=== PATIENT | male | born 1935 | race Caucasian/White ===

== ENCOUNTER 2016-12-19 11:23 | Emergency (ER) | payer MEDICARE, OTHER ==
[~2016-12-19] VITALS: Ht 172.7 cm; Wt 95.3 kg
[2016-12-19] MEDS ORDERED: ROSU20TA PO (11:50)
[2016-12-19] MEDS ORDERED: CITA40TA22 PO (11:50)
[2016-12-19] MEDS ORDERED: METO25TA6 PO (11:50)
[2016-12-19] MEDS ORDERED: L THYROXINE PO (11:50)
[2016-12-19] MEDS ORDERED: TAMS-3 PO (11:51)
[2016-12-19] MEDS ORDERED: CYCLOBENZAPRINE HCL 10 MG TABLET PO ONE (12:30)
[2016-12-19] MEDS ORDERED: HYDROCODONE/APAP 5-325MG TABLET PO ONE (12:30)
--- NOTE | 2016-12-19 13:54 | NUR ---
Patient is eating food tray with good appetite, still for disposition, decreased pains expressed
--- NOTE | 2016-12-19 14:57 | NUR ---
Patient discharged to home in stable conditon. Written and verbal after care instructions given to patient and spouse. Patient and spouse verbalized understanding of instructions. Copies of the x-ray results given to patient per request.
--- NOTE | 2016-12-19 14:58 | NUR ---
Patient left with his own walker and spouse.
== END 2016-12-19 15:02 | disposition home or self-care (01) ==
LOC: ER 11:23
DX: S20.219A Contusion of unspecified front wall of thorax, initial encounter (principal); M54.5 Low back pain; Z88.0 Allergy status to penicillin; I10 Essential (primary) hypertension; E03.9 Hypothyroidism, unspecified; E78.5 Hyperlipidemia, unspecified; W10.9XXA Fall (on) (from) unspecified stairs and steps, initial encounter; Y93.89 Activity, other specified; Y92.9 Unspecified place or not applicable; Y99.9 Unspecified external cause status
CPT/HCPCS: 71101; 72110; 99284; A4663

== ENCOUNTER 2023-11-09 13:19 | Inpatient (IN) | payer BC, MEDICARE, OTHER ==
[~2023-11-09] VITALS: Ht 172.7 cm; Wt 78.0 kg
[~2023-11-09 13:19] MED LIST: CITA40TA22 PO; L THYROXINE PO; METO25TA6 PO; ROSU20TA2 PO; TAMS-3 PO
[2023-11-09 14:34] LABS: *BILIRUBIN,URIN 3+ (NEGATIVE); *BLOOD, URINE 3+ (NEGATIVE); *CLARITY,URINE TURBID (CLEAR); *COLOR,URINE RED (YELLOW); *KETONES,URINE 2+ (NEGATIVE); *PROTEIN,URINE 3+ (NEGATIVE); LEUKOCYTE ESTERASE ,URINE 3+ (NEGATIVE); NITRITE, URINE POSITIVE (NEGATIVE); PH,URINE >=9.0 (5.0-8.0); UGLUCOSE TRACE (NEGATIVE)
[2023-11-09 14:43] LABS: BASOPHILS % (AUTO) 0.3 % (0.0-2.0); EOSINOPHILS # (AUTO) 0.2 K/uL (0.0-0.7); EOSINOPHILS % (AUTO) 1.8 % (0.0-7.0); HEMATOCRIT 38.4 % (36.7-47.1); LYMPHOCYTES # (AUTO) 1.3 K/uL (0.8-4.8); LYMPHOCYTES % (AUTO) 10.5 % (20.5-51.5); MEAN CORPUSCULAR HEMOGLOBIN 30.9 uug (23.8-33.4); MEAN CORPUSCULAR HGB CONC 34 g/dL (32.5-36.3); MEAN CORPUSCULAR VOLUME 91.3 fL (73.0-96.2); MONOCYTES # (AUTO) 0.8 K/uL (0.1-1.30); MONOCYTES % (AUTO) 6.3 % (0.0-11.0); NEUTROPHILS # (AUTO) 10.1 K/uL (1.8-8.9); NEUTROPHILS % (AUTO) 81.1 % (38.5-71.5); PLATELET COUNT (AUTO) 281 K/uL (152-348); RED BLOOD CELL COUNT(AUTO) 4.21 MIL/uL (4.06-5.63); RED CELL DISTRIBUTION WIDTH 14.9 % (12.1-16.2); WHITE BLOOD COUNT (AUTO) 12.5 K/uL (3.6-10.2)
[2023-11-09 14:44] LABS: DIFFERENTIAL COMMENT 1
[2023-11-09 14:53] LABS: CALCIUM 9.3 mg/dL (8.5-10.1); CARBON DIOXIDE 33 mmol/L (21-32); CHLORIDE 101 mmol/L (98-107); CREATININE 1.9 mg/dL (0.6-1.3); GLUCOSE 103 mg/dL (74-106); POTASSIUM 3.7 mmol/L (3.5-5.1); SODIUM SERUM 140 mmol/L (136-145); UREA NITROGEN, BLOOD 34 mg/dL (7-18)
[2023-11-09] MEDS ORDERED: BUPR-96 PO (14:56)
[2023-11-09] MEDS ORDERED: LEVO150T8 PO (14:56)
[2023-11-09] MEDS ORDERED: VITAMIN D3 PO (14:56)
[2023-11-09] MEDS ORDERED: FINA5TAB11 PO (14:56)
[2023-11-09] MEDS ORDERED: APIX5TAB PO (14:56)
[2023-11-09] MEDS ORDERED: VIT1TABL46 PO (14:56)
[2023-11-09] MEDS ORDERED: ASCO500C18 PO (14:56)
[2023-11-09] MEDS ORDERED: CRANBERRY PO (14:56)
[2023-11-09] MEDS ORDERED: HYDR-4209 PO (14:56)
[2023-11-09] MEDS ORDERED: POLY17PO4 PO (14:56)
[2023-11-09] MEDS ORDERED: GABA-532 PO (14:56)
[2023-11-09] MEDS ORDERED: ACET-2605 PO (14:56)
[2023-11-09] MEDS ORDERED: SENN8.6T19 PO (14:56)
[2023-11-09 15:05] LABS: ALANINE AMINOTRANSFERASE 29 U/L (16-63); ALKALINE PHOSPHATASE 81 U/L (50-136); ASPARTATE AMINOTRANSFERASE 14 U/L (15-37); BILIRUBIN,DIRECT 0.1 mg/dL (0.0-0.2); BILIRUBIN,TOTAL 0.5 mg/dL (0.2-1.0); NT-PRO BNP 289 pg/mL (0-125); TOTAL PROTEIN, SERUM 6.8 g/dL (6.4-8.2)
[2023-11-09 15:11] LABS: RBC,URINE TNTC /HPF (0-3)
[2023-11-09 15:12] LABS: BACTERIA,URINE MANY /HPF (NONE SEEN)
[2023-11-09 15:13] LABS: SQUAMOUS EPITHELIAL CELL,UR FEW /HPF (NONE SEEN); WBC,URINE 50-80 /HPF (0-3)
[2023-11-09] MEDS ORDERED: levoFLOXacin 500 MG/D5W 100 ML ONE (17:20)
[2023-11-09] MEDS: levoFLOXacin 500 MG/D5W 100ML PIGGYBACK IV ONE (17:25)
[2023-11-09] MEDS: IV NORMAL SALINE 1000 ML BAG IV ONE (18:01)
[2023-11-09] MEDS ORDERED: MIRALAX 17 GM POWD.PACK PO PRN (19:00)
[2023-11-09] MEDS ORDERED: HYDROCODONE/APAP 5-325MG TABLET PO PRN (19:00)
[2023-11-09] MEDS ORDERED: ONDANSETRON 4 MG/2 ML VIAL IV PRN (19:15)
[2023-11-09] MEDS ORDERED: ACETAMINOPHEN 325 MG TABLET PO PRN (19:15)
[2023-11-09 20:36] VITALS: BP 99/62; TEMP 97.6; O2SAT 98
[2023-11-09 20:40] VITALS: O2SAT 97
[2023-11-09] MEDS ORDERED: MEROPENEM 500MG/NS 50ML PB ***ER PYXIS ONLY IV ONE (20:56)
[2023-11-09] MEDS ORDERED: Medication Not On Formulary EA (Rosuvastatin Calcium (Crestor) 20 MG) PO SCH (21:00)
[2023-11-09] MEDS: TAMSULOSIN HCL 0.4 MG CAP.SR.24H PO SCH (21:14)
[2023-11-09] MEDS: ATORVASTATIN 40 MG TABLET PO SCH (21:15)
[2023-11-09] MEDS: MEROPENEM 500 MG in IV NORMAL SALINE 50 ML IV ONE (21:42)
[2023-11-09] MEDS ORDERED: MEROPENEM 500 MG in IV NORMAL SALINE 50 ML IV SCH (22:00)
[2023-11-09] MEDS ORDERED: IV 0.9% SODIUM CHLORID+ 20 KCL 1,000 ML ONE (22:01)
[2023-11-09] MEDS: POTASSIUM CHLORIDE 20 MEQ in IV NS 1000 ML 1,000 ML IV PRN (23:11)
[2023-11-10] VITALS (8 sets, daily range): BP systolic 89–122; BP diastolic 52–62; TEMP 96.6–98.4; O2SAT 95–99
[2023-11-10] MEDS ORDERED: BUPR150T5 PO (05:30)
[2023-11-10] MEDS: PANTOPRAZOLE SODIUM 40 MG TABLET.DR PO SCH (06:23)
[2023-11-10] MEDS: LEVOTHYROXINE SODIUM 150 MCG TABLET PO SCH (06:24)
[2023-11-10 06:59] LABS: BASOPHILS % (AUTO) 0.4 % (0.0-2.0); EOSINOPHILS # (AUTO) 0.4 K/uL (0.0-0.7); EOSINOPHILS % (AUTO) 3.5 % (0.0-7.0); HEMATOCRIT 33.6 % (36.7-47.1); HEMOGLOBIN 11.6 g/dL (12.5-16.3); LYMPHOCYTES # (AUTO) 1.6 K/uL (0.8-4.8); LYMPHOCYTES % (AUTO) 15.7 % (20.5-51.5); MEAN CORPUSCULAR HEMOGLOBIN 31.4 uug (23.8-33.4); MEAN CORPUSCULAR HGB CONC 35 g/dL (32.5-36.3); MEAN CORPUSCULAR VOLUME 90.6 fL (73.0-96.2); MONOCYTES # (AUTO) 0.9 K/uL (0.1-1.30); MONOCYTES % (AUTO) 8.5 % (0.0-11.0); NEUTROPHILS # (AUTO) 7.6 K/uL (1.8-8.9); NEUTROPHILS % (AUTO) 71.9 % (38.5-71.5); PLATELET COUNT (AUTO) 261 K/uL (152-348); RED BLOOD CELL COUNT(AUTO) 3.71 MIL/uL (4.06-5.63); RED CELL DISTRIBUTION WIDTH 14.5 % (12.1-16.2); WHITE BLOOD COUNT (AUTO) 10.5 K/uL (3.6-10.2)
[2023-11-10 07:13] LABS: IRON, SERUM 32 ug/dL (50-175)
[2023-11-10 07:24] LABS: ALANINE AMINOTRANSFERASE 20 U/L (16-63); ALBUMIN 2.5 g/dL (3.4-5.0); ALKALINE PHOSPHATASE 65 U/L (50-136); ASPARTATE AMINOTRANSFERASE 10 U/L (15-37); BILIRUBIN,TOTAL 0.5 mg/dL (0.2-1.0); CALCIUM 8.3 mg/dL (8.5-10.1); CARBON DIOXIDE 33 mmol/L (21-32); CHLORIDE 105 mmol/L (98-107); CHOLESTEROL 153 mg/dL (<200); CREATININE 1.6 mg/dL (0.6-1.3); GLUCOSE 84 mg/dL (74-106); HDL CHOLESTEROL 36 mg/dL (40-60); MAGNESIUM 1.8 mg/dL (1.8-2.4); PHOSPHOROUS 2.6 mg/dL (2.5-4.9); POTASSIUM 3.8 mmol/L (3.5-5.1); SODIUM SERUM 140 mmol/L (136-145); TOTAL PROTEIN, SERUM 5.8 g/dL (6.4-8.2); TRIGLYCERIDES 99 MG/DL (30-150); UREA NITROGEN, BLOOD 30 mg/dL (7-18)
[2023-11-10 07:28] LABS: THYROID STIMULATING HORMONE 9.888 mIU/mL (0.358-3.740)
[2023-11-10 07:38] LABS: DIFFERENTIAL COMMENT 1
[2023-11-10] MEDS: MEROPENEM 500 MG in IV NORMAL SALINE 50 ML IV SCH (08:30)
[2023-11-10] MEDS: buPROPion SR 150 MG TABLET.SA PO SCH (08:30)
[2023-11-10] MEDS: FOLIC ACID/VITAMIN B COMP W-C TABLET PO SCH (08:30)
[2023-11-10] MEDS: FINASTERIDE 5 MG TABLET PO SCH (08:31)
[2023-11-10] MEDS: CITALOPRAM 20 MG TABLET PO SCH (08:31)
[2023-11-10] MEDS: GABAPENTIN 100 MG CAPSULE PO SCH (08:31)
[2023-11-10] MEDS: ASCORBIC ACID 500 MG TABLET PO SCH (08:31)
[2023-11-10] MEDS: SENNOSIDES 1 TABLET PO SCH (08:31)
[2023-11-10] MEDS ORDERED: buPROPion XL 150 MG TAB.SR.24H PO SCH ×2 (09:00)
[2023-11-10 14:43] LABS: *BILIRUBIN,URIN NEGATIVE (NEGATIVE); *BLOOD, URINE 3+ (NEGATIVE); *CLARITY,URINE CLEAR (CLEAR); *COLOR,URINE YELLOW (YELLOW); *KETONES,URINE TRACE (NEGATIVE); *PROTEIN,URINE 1+ (NEGATIVE); *UROBILINOGEN,URINE 0.2 E.U./dl (NORMAL); LEUKOCYTE ESTERASE ,URINE 1+ (NEGATIVE); NITRITE, URINE NEGATIVE (NEGATIVE); PH,URINE 6.5 (5.0-8.0); UGLUCOSE NEGATIVE (NEGATIVE)
[2023-11-10 14:50] LABS: BACTERIA,URINE MANY /HPF (NONE SEEN); RBC,URINE TNTC /HPF (0-3); SQUAMOUS EPITHELIAL CELL,UR FEW /HPF (NONE SEEN); WBC,URINE 50-80 /HPF (0-3)
[2023-11-10 14:52] LABS: *CREATININE,URINE 126.8 mg/dL (30-125); *URINE TOTAL PROTEIN RANDOM 52.9 mg/dL (<150/24HR)
[2023-11-10 17:09] LABS: BAND % (MANUAL) 13 % (0-10); NEUTROPHILS % (MANUAL) 57 % (42-75)
[2023-11-10 17:10] LABS: ANISOCYTOSIS 1+; EOSINOPHILS % (MANUAL) 2 % (0-8); LYMPHOCYTES % (MANUAL) 16 % (20-40); MONOCYTES % (MANUAL) 9 % (2-10); PLATELET ESTIMATE ADEQUATE; REACTIVE LYMPHOCYTES 3 % (0-0)
[2023-11-10] MEDS: ATORVASTATIN 10 MG TABLET PO SCH (21:10)
[2023-11-11] VITALS (8 sets, daily range): BP systolic 96–115; BP diastolic 44–70; TEMP 97.6–98.2; O2SAT 93–100
[2023-11-11 07:29] LABS: BASOPHILS # (AUTO) 0.1 K/UL (0.0-0.2); BASOPHILS % (AUTO) 0.9 % (0.0-2.0); EOSINOPHILS # (AUTO) 0.4 K/uL (0.0-0.7); EOSINOPHILS % (AUTO) 5.8 % (0.0-7.0); HEMATOCRIT 32.5 % (36.7-47.1); HEMOGLOBIN 11.1 g/dL (12.5-16.3); LYMPHOCYTES # (AUTO) 1.3 K/uL (0.8-4.8); LYMPHOCYTES % (AUTO) 19.2 % (20.5-51.5); MEAN CORPUSCULAR HEMOGLOBIN 30.9 uug (23.8-33.4); MEAN CORPUSCULAR HGB CONC 34 g/dL (32.5-36.3); MEAN CORPUSCULAR VOLUME 90.6 fL (73.0-96.2); MONOCYTES # (AUTO) 0.5 K/uL (0.1-1.30); NEUTROPHILS # (AUTO) 4.7 K/uL (1.8-8.9); NEUTROPHILS % (AUTO) 67.1 % (38.5-71.5); PLATELET COUNT (AUTO) 262 K/uL (152-348); RED BLOOD CELL COUNT(AUTO) 3.59 MIL/uL (4.06-5.63); RED CELL DISTRIBUTION WIDTH 14.9 % (12.1-16.2)
[2023-11-11 07:39] LABS: DIFFERENTIAL COMMENT 1
[2023-11-11 07:54] LABS: ALANINE AMINOTRANSFERASE 17 U/L (16-63); ALBUMIN 2.4 g/dL (3.4-5.0); ALKALINE PHOSPHATASE 60 U/L (50-136); ASPARTATE AMINOTRANSFERASE 6 U/L (15-37); BILIRUBIN,TOTAL 0.5 mg/dL (0.2-1.0); CALCIUM 8.1 mg/dL (8.5-10.1); CARBON DIOXIDE 28 mmol/L (21-32); CHLORIDE 106 mmol/L (98-107); CREATINE KINASE, TOTAL 62 U/L (39-308); CREATININE 1.4 mg/dL (0.6-1.3); GLUCOSE 75 mg/dL (74-106); MAGNESIUM 1.8 mg/dL (1.8-2.4); PHOSPHOROUS 2.7 mg/dL (2.5-4.9); POTASSIUM 3.6 mmol/L (3.5-5.1); SODIUM SERUM 141 mmol/L (136-145); TOTAL PROTEIN, SERUM 5.4 g/dL (6.4-8.2); UREA NITROGEN, BLOOD 21 mg/dL (7-18)
[2023-11-11] MEDS: MEROPENEM 500 MG in IV NORMAL SALINE 50 ML IV SCH (10:56)
[2023-11-12 00:23] VITALS: O2SAT 95
[2023-11-12 00:48] VITALS: BP 102/66; TEMP 98.2; O2SAT 96
[2023-11-12 06:40] VITALS: BP 130/70; TEMP 97.7; O2SAT 97
[2023-11-12 07:06] LABS: BASOPHILS % (AUTO) 0.6 % (0.0-2.0); EOSINOPHILS # (AUTO) 0.4 K/uL (0.0-0.7); EOSINOPHILS % (AUTO) 5.5 % (0.0-7.0); HEMATOCRIT 31.4 % (36.7-47.1); HEMOGLOBIN 11.1 g/dL (12.5-16.3); LYMPHOCYTES # (AUTO) 1.3 K/uL (0.8-4.8); LYMPHOCYTES % (AUTO) 17.9 % (20.5-51.5); MEAN CORPUSCULAR HEMOGLOBIN 31.8 uug (23.8-33.4); MEAN CORPUSCULAR HGB CONC 35 g/dL (32.5-36.3); MEAN CORPUSCULAR VOLUME 90.4 fL (73.0-96.2); MONOCYTES # (AUTO) 0.6 K/uL (0.1-1.30); MONOCYTES % (AUTO) 8.4 % (0.0-11.0); NEUTROPHILS % (AUTO) 67.6 % (38.5-71.5); PLATELET COUNT (AUTO) 270 K/uL (152-348); RED BLOOD CELL COUNT(AUTO) 3.48 MIL/uL (4.06-5.63); RED CELL DISTRIBUTION WIDTH 14.6 % (12.1-16.2); WHITE BLOOD COUNT (AUTO) 7.4 K/uL (3.6-10.2)
[2023-11-12 07:12] LABS: CALCIUM 8.4 mg/dL (8.5-10.1); CREATININE 1.3 mg/dL (0.6-1.3); MAGNESIUM 1.8 mg/dL (1.8-2.4); PHOSPHOROUS 2.4 mg/dL (2.5-4.9); POTASSIUM 3.7 mmol/L (3.5-5.1)
[2023-11-12 07:13] LABS: DIFFERENTIAL COMMENT 1
[2023-11-12 07:29] VITALS: BP 106/67; TEMP 97.8; O2SAT 97
[2023-11-12] MEDS: ENSURE WITH FIBER 237 ML LIQUID (CHOCOLATE) PO SCH (10:57)
[2023-11-12 11:06] LABS: A/G RATIO 1.1 (0.7-1.7); ALBUMIN 2.6 g/dL (2.9-4.4); ALPHA-1-GLOBULIN 0.2 g/dL (0.0-0.4); ALPHA-2-GLOBULIN 0.6 g/dL (0.4-1.0); BETA GLOBULIN 0.9 g/dL (0.7-1.3); GAMMA GLOBULIN 0.6 g/dL (0.4-1.8); GLOBULIN, TOTAL 2.3 g/dL (2.2-3.9); M-SPIKE Not Observed g/dL (Not Observed); PTH, INTACT 18 pg/mL (15-65)
[2023-11-12 11:38] VITALS: BP 106/68; TEMP 97.9; O2SAT 98
[2023-11-12 16:36] VITALS: O2SAT 96
== END 2023-11-12 14:25 | disposition home health service (06) | DRG 698 ==
LOC: ER 13:19 → MEDSURG3 18:28 → TELE3 11-10 03:00
PROVIDERS: ADMIT Internal Medicine; ATTEND Internal Medicine
DX: T83.511A Infection and inflammatory reaction due to indwelling urethral catheter, initial encounter (principal); A41.9 Sepsis, unspecified organism; N17.0 Acute kidney failure with tubular necrosis; E44.0 Moderate protein-calorie malnutrition; D68.59 Other primary thrombophilia; J98.11 Atelectasis; N39.0 Urinary tract infection, site not specified; Y73.1 Therapeutic (nonsurgical) and rehabilitative gastroenterology and urology devices associated with adverse incidents; Y92.099 Unspecified place in other non-institutional residence as the place of occurrence of the external cause; R31.0 Gross hematuria; E89.0 Postprocedural hypothyroidism; B96.4 Proteus (mirabilis) (morganii) as the cause of diseases classified elsewhere; E78.5 Hyperlipidemia, unspecified; E88.09 Other disorders of plasma-protein metabolism, not elsewhere classified; G62.9 Polyneuropathy, unspecified; H91.93 Unspecified hearing loss, bilateral; I10 Essential (primary) hypertension; I44.0 Atrioventricular block, first degree; I70.0 Atherosclerosis of aorta; M19.90 Unspecified osteoarthritis, unspecified site; N18.9 Chronic kidney disease, unspecified; I12.9 Hypertensive chronic kidney disease with stage 1 through stage 4 chronic kidney disease, or unspecified chronic kidney disease; N20.0 Calculus of kidney; N28.1 Cyst of kidney, acquired; Z79.01 Long term (current) use of anticoagulants; Z85.850 Personal history of malignant neoplasm of thyroid; Z87.440 Personal history of urinary (tract) infections; Z87.828 Personal history of other (healed) physical injury and trauma; Z88.0 Allergy status to penicillin; Z90.79 Acquired absence of other genital organ(s); Z91.81 History of falling; Z96.653 Presence of artificial knee joint, bilateral; F03.90 Unspecified dementia, unspecified severity, without behavioral disturbance, psychotic disturbance, mood disturbance, and anxiety; Z79.899 Other long term (current) drug therapy; Z96.641 Presence of right artificial hip joint
CPT/HCPCS: 36415; 70030-TC; 70450; 71045; 76770; 83550; 83605; 83735; 83970; 84100; 84153; 84155; 84165; 84300; 84443; 84484; 85025; 85730; 87040; 93005; 94760; A4606; A4663; G0378; J1956; J2185; J3480; J7040

== ENCOUNTER 2024-11-03 10:21 | Inpatient (IN) | payer BC ==
[~2024-11-03] VITALS: Ht 172.7 cm; Wt 77.1 kg
[~2024-11-03 10:21] MED LIST changes: +ACET-2605 PO; +ASCO500C18 PO; +BUPR150T5 PO; +CRANBERRY PO; +FINA5TAB11 PO; +GABA-532 PO; +HYDR-4209 PO; -L THYROXINE PO; +LEVO150T8 PO; +POLY17PO4 PO; +SENN8.6T19 PO; +VIT1TABL46 PO; +VITAMIN D3 PO
[2024-11-03] MEDS ORDERED: POLY119P2 PO (10:46)
[2024-11-03] MEDS ORDERED: APIX5TAB PO (10:46)
[2024-11-03 10:51] LABS: BASOPHILS # (AUTO) 0.1 K/UL (0.0-0.2); BASOPHILS % (AUTO) 0.5 % (0.0-2.0); EOSINOPHILS # (AUTO) 0.1 K/uL (0.0-0.7); EOSINOPHILS % (AUTO) 0.8 % (0.0-7.0); HEMATOCRIT 39.7 % (36.7-47.1); LYMPHOCYTES # (AUTO) 1.8 K/uL (0.8-4.8); LYMPHOCYTES % (AUTO) 12.7 % (20.5-51.5); MEAN CORPUSCULAR HEMOGLOBIN 29.3 uug (23.8-33.4); MEAN CORPUSCULAR HGB CONC 33 g/dL (32.5-36.3); MEAN CORPUSCULAR VOLUME 89.4 fL (73.0-96.2); MONOCYTES # (AUTO) 0.6 K/uL (0.1-1.30); MONOCYTES % (AUTO) 4.6 % (0.0-11.0); NEUTROPHILS # (AUTO) 11.4 K/uL (1.8-8.9); NEUTROPHILS % (AUTO) 81.4 % (38.5-71.5); PLATELET COUNT (AUTO) 196 K/uL (152-348); RED BLOOD CELL COUNT(AUTO) 4.44 MIL/uL (4.06-5.63); RED CELL DISTRIBUTION WIDTH 14.9 % (12.1-16.2); WHITE BLOOD COUNT (AUTO) 13.9 K/uL (3.6-10.2)
[2024-11-03 10:59] LABS: CALCIUM 9.4 mg/dL (8.5-10.1); CARBON DIOXIDE 29 mmol/L (21-32); CHLORIDE 99 mmol/L (98-107); CREATININE 1.6 mg/dL (0.6-1.3); GLUCOSE 112 mg/dL (74-106); SODIUM SERUM 137 mmol/L (136-145); UREA NITROGEN, BLOOD 31 mg/dL (7-18)
[2024-11-03] MEDS: IV NORMAL SALINE 500 ML BAG IV ONE (11:03)
[2024-11-03 11:05] LABS: ALANINE AMINOTRANSFERASE 20 U/L (16-63); ALBUMIN 3.5 g/dL (3.4-5.0); ALKALINE PHOSPHATASE 70 U/L (50-136); ASPARTATE AMINOTRANSFERASE 25 U/L (15-37); BILIRUBIN,DIRECT 0.3 mg/dL (0.0-0.2); LIPASE 14 U/L (16-77); TOTAL PROTEIN, SERUM 7.3 g/dL (6.4-8.2)
[2024-11-03 11:12] LABS: DIFFERENTIAL COMMENT 1
[2024-11-03] MEDS: IV NS 1000 ML 1,000 ML IV PRN ×2 (11:46→21:27)
[2024-11-03] MEDS ORDERED: METOCLOPRAMIDE HCL 10 MG/2 ML VIAL ONE (12:02)
[2024-11-03] MEDS: MORPHINE SULFATE 2 MG/1 ML DISP.SYRIN IV ONE (12:03)
[2024-11-03] MEDS: METOCLOPRAMIDE HCL 10 MG/2 ML VIAL IV ONE (12:03)
[2024-11-03] MEDS ORDERED: MORPHINE SULFATE 2 MG/1 ML DISP.SYRIN ONE (12:03)
[2024-11-03 13:43] LABS: *BILIRUBIN,URIN NEGATIVE (NEGATIVE); *BLOOD, URINE 3+ (NEGATIVE); *CLARITY,URINE TURBID (CLEAR); *COLOR,URINE Brown (YELLOW); *KETONES,URINE NEGATIVE (NEGATIVE); *PROTEIN,URINE 2+ (NEGATIVE); LEUKOCYTE ESTERASE ,URINE 3+ (NEGATIVE); NITRITE, URINE NEGATIVE (NEGATIVE); UGLUCOSE NEGATIVE (NEGATIVE)
[2024-11-03 14:00] LABS: BACTERIA,URINE MANY /HPF (NONE SEEN); RBC,URINE TNTC /HPF (0-3); WBC,URINE TNTC /HPF (0-3)
[2024-11-03] MEDS ORDERED: SULFAMETHOXAZOLE/TRIMETHOPRIM 10 ML VIAL IV ONE (14:20)
[2024-11-03] MEDS: SULFAMETHOXAZOL/TRIMETHOPRI IV 20 ML in IV DEXTROSE 5% 500 ML IV ONE (14:20)
[2024-11-03 17:30] VITALS: BP 99/65; TEMP 98.4; O2SAT 95
[2024-11-03] MEDS ORDERED: METO1TAB25 PO (18:32)
[2024-11-03] MEDS ORDERED: CHOL10005 PO (18:35)
[2024-11-03 19:00] VITALS: BP 125/56; TEMP 97.6; O2SAT 96
[2024-11-03] MEDS ORDERED: POLYETHYLENE GLYCOL 3350 238 GM POWDER PO PRN (19:15)
[2024-11-03] MEDS ORDERED: ZOLPIDEM 5 MG TABLET PO PRN (19:15)
[2024-11-03] MEDS ORDERED: levoFLOXacin 500 MG/D5W 500 MG in PREMIXED 1 EACH IV SCH (19:15)
[2024-11-03] MEDS ORDERED: HYDROCODONE/APAP 5-325MG TABLET PO PRN (19:15)
[2024-11-03] MEDS ORDERED: ACETAMINOPHEN 325 MG TABLET PO PRN (19:15)
[2024-11-03] MEDS ORDERED: levoFLOXacin 500 MG/D5W 100 ML ONE (20:42)
[2024-11-03] MEDS: APIXABAN 2.5 MG TABLET PO SCH (21:29)
[2024-11-03] MEDS: levoFLOXacin 500 MG/D5W 100 ML IV ONE (21:31)
[2024-11-04 06:42] VITALS: BP 92/61; TEMP 98.5; O2SAT 95
[2024-11-04 06:53] LABS: BASOPHILS # (AUTO) 0.1 K/UL (0.0-0.2); BASOPHILS % (AUTO) 0.5 % (0.0-2.0); EOSINOPHILS # (AUTO) 0.2 K/uL (0.0-0.7); EOSINOPHILS % (AUTO) 2.4 % (0.0-7.0); HEMATOCRIT 33.4 % (36.7-47.1); HEMOGLOBIN 11.4 g/dL (12.5-16.3); LYMPHOCYTES # (AUTO) 1.2 K/uL (0.8-4.8); LYMPHOCYTES % (AUTO) 11.4 % (20.5-51.5); MEAN CORPUSCULAR HEMOGLOBIN 30.6 uug (23.8-33.4); MEAN CORPUSCULAR HGB CONC 34 g/dL (32.5-36.3); MEAN CORPUSCULAR VOLUME 89.7 fL (73.0-96.2); MONOCYTES # (AUTO) 0.7 K/uL (0.1-1.30); MONOCYTES % (AUTO) 6.5 % (0.0-11.0); NEUTROPHILS # (AUTO) 8.1 K/uL (1.8-8.9); NEUTROPHILS % (AUTO) 79.2 % (38.5-71.5); PLATELET COUNT (AUTO) 181 K/uL (152-348); RED BLOOD CELL COUNT(AUTO) 3.73 MIL/uL (4.06-5.63); RED CELL DISTRIBUTION WIDTH 14.8 % (12.1-16.2); WHITE BLOOD COUNT (AUTO) 10.2 K/uL (3.6-10.2)
[2024-11-04 07:01] LABS: CALCIUM 7.7 mg/dL (8.5-10.1); CARBON DIOXIDE 28 mmol/L (21-32); CHLORIDE 103 mmol/L (98-107); CREATININE 1.4 mg/dL (0.6-1.3); GLUCOSE 107 mg/dL (74-106); MAGNESIUM 1.6 mg/dL (1.8-2.4); PHOSPHOROUS 2.2 mg/dL (2.5-4.9); POTASSIUM 3.3 mmol/L (3.5-5.1); SODIUM SERUM 136 mmol/L (136-145); UREA NITROGEN, BLOOD 26 mg/dL (7-18)
[2024-11-04 07:12] LABS: DIFFERENTIAL COMMENT 1
[2024-11-04 07:41] VITALS: BP 93/55; TEMP 98.2; O2SAT 97
[2024-11-04] MEDS ORDERED: Medication Not On Formulary EA (Cholecalciferol (Vitamin D3) (Vitamin D3) 1 CAP) PO SCH (09:00)
[2024-11-04] MEDS ORDERED: APIXABAN 5 MG TABLET PO SCH (09:00)
[2024-11-04] MEDS ORDERED: Medication Not On Formulary EA (Ascorbic Acid (Vitamin C) 1,000 MG) PO SCH (09:00)
[2024-11-04] MEDS ORDERED: Medication Not On Formulary EA (Vit B Cmplx 3/Fa/Vit C/Biotin (Rena-Vite Rx Tablet) 1 EA PO SCH (09:00)
[2024-11-04] MEDS: MIRALAX 17 GM POWD.PACK PO PRN (09:24)
[2024-11-04] MEDS: CHOLECALCIFEROL 1,000 UNIT TABLET PO SCH (09:24)
[2024-11-04] MEDS: MAGNESIUM HYDROXIDE 30 ML LIQUID UDC PO PRN (09:24)
[2024-11-04] MEDS: SENNOSIDES 1 TABLET PO SCH (09:25)
[2024-11-04] MEDS: ASCORBIC ACID 500 MG TABLET PO SCH (09:26)
[2024-11-04] MEDS: GABAPENTIN 100 MG CAPSULE PO SCH (09:30)
[2024-11-04] MEDS: buPROPion SR 150 MG TABLET.SA PO SCH (09:30)
[2024-11-04] MEDS: FOLIC ACID/VITAMIN B COMP W-C TABLET PO SCH (09:30)
[2024-11-04] MEDS: LEVOTHYROXINE SODIUM 150 MCG TABLET PO SCH (09:31)
[2024-11-04] MEDS: TAMSULOSIN HCL 0.4 MG CAP.SR.24H PO SCH (09:32)
[2024-11-04] MEDS: FINASTERIDE 5 MG TABLET PO SCH (09:33)
[2024-11-04] MEDS: METOPROLOL SUCCINATE XL 50 MG TAB.SR.24H PO SCH (09:36)
[2024-11-04] MEDS: REMEDY ESSENTIAL ZINC PASTE 113 GM TP PRN (09:48)
[2024-11-04 12:00] VITALS: BP 110/60; TEMP 97.5; O2SAT 96
[2024-11-04] MEDS: POTASSIUM PHOSPHATE MM 15 MMOL in IV NORMAL SALINE 250 ML IV ONE (12:41)
[2024-11-04] MEDS: MAGNESIUM OXIDE 400 MG TABLET PO ONE (12:41)
[2024-11-04 16:00] VITALS: BP 102/68; TEMP 97.2; O2SAT 96
[2024-11-04 19:00] VITALS: BP 97/59; TEMP 98; O2SAT 95
[2024-11-04] MEDS: levoFLOXacin 250MG /D5W 50 ML IV SCH (20:42)
[2024-11-05 06:00] VITALS: BP 105/66; TEMP 98; O2SAT 95
[2024-11-05] MEDS: LEVOTHYROXINE SODIUM 150 MCG TABLET PO SCH (06:14)
[2024-11-05 06:56] LABS: BASOPHILS % (AUTO) 0.6 % (0.0-2.0); EOSINOPHILS # (AUTO) 0.3 K/uL (0.0-0.7); EOSINOPHILS % (AUTO) 4.7 % (0.0-7.0); HEMATOCRIT 30.6 % (36.7-47.1); HEMOGLOBIN 10.5 g/dL (12.5-16.3); LYMPHOCYTES # (AUTO) 1.4 K/uL (0.8-4.8); LYMPHOCYTES % (AUTO) 20.4 % (20.5-51.5); MEAN CORPUSCULAR HEMOGLOBIN 31.2 uug (23.8-33.4); MEAN CORPUSCULAR HGB CONC 34 g/dL (32.5-36.3); MEAN CORPUSCULAR VOLUME 91.3 fL (73.0-96.2); MONOCYTES # (AUTO) 0.6 K/uL (0.1-1.30); MONOCYTES % (AUTO) 9.2 % (0.0-11.0); NEUTROPHILS # (AUTO) 4.5 K/uL (1.8-8.9); NEUTROPHILS % (AUTO) 65.1 % (38.5-71.5); PLATELET COUNT (AUTO) 164 K/uL (152-348); RED BLOOD CELL COUNT(AUTO) 3.35 MIL/uL (4.06-5.63); WHITE BLOOD COUNT (AUTO) 6.9 K/uL (3.6-10.2)
[2024-11-05 07:17] LABS: IRON, SERUM 58 ug/dL (50-175)
[2024-11-05 07:21] LABS: DIFFERENTIAL COMMENT 1
[2024-11-05 07:35] LABS: ALANINE AMINOTRANSFERASE 13 U/L (16-63); ALBUMIN 2.3 g/dL (3.4-5.0); ALKALINE PHOSPHATASE 47 U/L (50-136); ASPARTATE AMINOTRANSFERASE 20 U/L (15-37); BILIRUBIN,TOTAL 0.8 mg/dL (0.2-1.0); CALCIUM 8.1 mg/dL (8.5-10.1); CARBON DIOXIDE 26 mmol/L (21-32); CHLORIDE 105 mmol/L (98-107); CREATININE 1.4 mg/dL (0.6-1.3); GLUCOSE 68 mg/dL (74-106); MAGNESIUM 1.8 mg/dL (1.8-2.4); NT-PRO BNP 140 pg/mL (0-125); PHOSPHOROUS 2.2 mg/dL (2.5-4.9); POTASSIUM 3.5 mmol/L (3.5-5.1); SODIUM SERUM 139 mmol/L (136-145); TOTAL PROTEIN, SERUM 5.3 g/dL (6.4-8.2); UREA NITROGEN, BLOOD 21 mg/dL (7-18)
[2024-11-05 08:18] LABS: THYROID STIMULATING HORMONE 49.683 mIU/mL (0.358-3.740)
[2024-11-05 08:43] LABS: CHOLESTEROL 163 mg/dL (<200); HDL CHOLESTEROL 42 mg/dL (40-60); TRIGLYCERIDES 63 MG/DL (30-150)
[2024-11-05 11:54] VITALS: BP 114/70; TEMP 97.9; O2SAT 95
[2024-11-05 16:03] VITALS: O2SAT 96
[2024-11-05 16:04] VITALS: BP 113/58; TEMP 98; O2SAT 96
[2024-11-05] MEDS: NEUTRA PHOS PACKET PO ONE (16:14)
[2024-11-05 20:23] VITALS: BP 92/56; TEMP 98.6; O2SAT 96
[2024-11-06 05:20] VITALS: BP 106/63; TEMP 98.5; O2SAT 97
[2024-11-06] MEDS: LEVOTHYROXINE SODIUM 175 MCG TABLET PO SCH (06:43)
[2024-11-06 06:54] LABS: BASOPHILS # (AUTO) 0.1 K/UL (0.0-0.2); BASOPHILS % (AUTO) 0.8 % (0.0-2.0); EOSINOPHILS # (AUTO) 0.4 K/uL (0.0-0.7); EOSINOPHILS % (AUTO) 5.6 % (0.0-7.0); HEMATOCRIT 32.6 % (36.7-47.1); HEMOGLOBIN 11.2 g/dL (12.5-16.3); LYMPHOCYTES # (AUTO) 1.5 K/uL (0.8-4.8); LYMPHOCYTES % (AUTO) 21.2 % (20.5-51.5); MEAN CORPUSCULAR HEMOGLOBIN 30.9 uug (23.8-33.4); MEAN CORPUSCULAR HGB CONC 34 g/dL (32.5-36.3); MEAN CORPUSCULAR VOLUME 89.8 fL (73.0-96.2); MONOCYTES # (AUTO) 0.6 K/uL (0.1-1.30); MONOCYTES % (AUTO) 7.9 % (0.0-11.0); NEUTROPHILS # (AUTO) 4.6 K/uL (1.8-8.9); NEUTROPHILS % (AUTO) 64.5 % (38.5-71.5); PLATELET COUNT (AUTO) 179 K/uL (152-348); RED BLOOD CELL COUNT(AUTO) 3.63 MIL/uL (4.06-5.63); RED CELL DISTRIBUTION WIDTH 15.1 % (12.1-16.2); WHITE BLOOD COUNT (AUTO) 7.2 K/uL (3.6-10.2)
[2024-11-06 07:03] LABS: DIFFERENTIAL COMMENT 1
[2024-11-06 07:09] LABS: ALANINE AMINOTRANSFERASE 16 U/L (16-63); ALBUMIN 2.6 g/dL (3.4-5.0); ALKALINE PHOSPHATASE 53 U/L (50-136); ASPARTATE AMINOTRANSFERASE 21 U/L (15-37); BILIRUBIN,TOTAL 0.6 mg/dL (0.2-1.0); CALCIUM 8.4 mg/dL (8.5-10.1); CARBON DIOXIDE 27 mmol/L (21-32); CHLORIDE 105 mmol/L (98-107); CREATININE 1.4 mg/dL (0.6-1.3); GLUCOSE 75 mg/dL (74-106); MAGNESIUM 1.7 mg/dL (1.8-2.4); POTASSIUM 3.5 mmol/L (3.5-5.1); SODIUM SERUM 139 mmol/L (136-145); TOTAL PROTEIN, SERUM 5.8 g/dL (6.4-8.2); UREA NITROGEN, BLOOD 16 mg/dL (7-18)
[2024-11-06 11:16] VITALS: BP 116/62; TEMP 97.6; O2SAT 97
[2024-11-06] MEDS: MAGNESIUM OXIDE 400 MG TABLET PO ONE (15:39)
[2024-11-06] MEDS: NEUTRA PHOS PACKET PO ONE (16:05)
[2024-11-06 19:00] VITALS: BP 117/74; TEMP 97.9; O2SAT 97
[2024-11-06] MEDS ORDERED: MEROPENEM 500 MG in IV NORMAL SALINE 50 ML IV SCH (22:15)
[2024-11-07] MEDS ORDERED: MEROPENEM 500MG/NS 50ML PB ***ER PYXIS ONLY IV ONE (00:46)
[2024-11-07] MEDS: MEROPENEM 500 MG in IV NORMAL SALINE 50 ML IV ONE (01:54)
[2024-11-07 05:00] VITALS: BP 102/43; TEMP 97.7; O2SAT 97
[2024-11-07 07:09] LABS: BASOPHILS # (AUTO) 0.1 K/UL (0.0-0.2); BASOPHILS % (AUTO) 0.9 % (0.0-2.0); EOSINOPHILS # (AUTO) 0.4 K/uL (0.0-0.7); EOSINOPHILS % (AUTO) 6.7 % (0.0-7.0); HEMATOCRIT 33.7 % (36.7-47.1); HEMOGLOBIN 11.5 g/dL (12.5-16.3); LYMPHOCYTES # (AUTO) 1.3 K/uL (0.8-4.8); MEAN CORPUSCULAR HEMOGLOBIN 30.9 uug (23.8-33.4); MEAN CORPUSCULAR HGB CONC 34 g/dL (32.5-36.3); MEAN CORPUSCULAR VOLUME 90.1 fL (73.0-96.2); MONOCYTES # (AUTO) 0.5 K/uL (0.1-1.30); MONOCYTES % (AUTO) 7.8 % (0.0-11.0); NEUTROPHILS # (AUTO) 3.8 K/uL (1.8-8.9); NEUTROPHILS % (AUTO) 62.6 % (38.5-71.5); PLATELET COUNT (AUTO) 196 K/uL (152-348); RED BLOOD CELL COUNT(AUTO) 3.74 MIL/uL (4.06-5.63); RED CELL DISTRIBUTION WIDTH 14.6 % (12.1-16.2)
[2024-11-07 07:17] LABS: DIFFERENTIAL COMMENT 1
[2024-11-07 07:51] LABS: CARBON DIOXIDE 29 mmol/L (21-32); CHLORIDE 103 mmol/L (98-107); CREATININE 1.3 mg/dL (0.6-1.3); GLUCOSE 76 mg/dL (74-106); MAGNESIUM 1.8 mg/dL (1.8-2.4); PHOSPHOROUS 2.6 mg/dL (2.5-4.9); POTASSIUM 3.8 mmol/L (3.5-5.1); SODIUM SERUM 140 mmol/L (136-145); UREA NITROGEN, BLOOD 13 mg/dL (7-18)
[2024-11-07 08:22] LABS: THYROID STIMULATING HORMONE 33.318 mIU/mL (0.358-3.740)
[2024-11-07] MEDS: NUTRISOURCE FIBER 4 GM PACKET PO SCH (09:00)
[2024-11-07] MEDS: ARGININE/GLUTAMINE/CALCIUM BMB 1 EACH POWD.PACK PO SCH (10:15)
[2024-11-07] MEDS: CYANOCOBALAMIN 1000 MCG/ML VIAL IM SCH (10:21)
[2024-11-07 12:00] VITALS: BP 100/64; TEMP 98.4; O2SAT 95
[2024-11-07] MEDS: MEROPENEM 500 MG in IV NORMAL SALINE 50 ML IV SCH (15:09)
[2024-11-07 16:11] VITALS: BP 102/74; TEMP 97.9; O2SAT 96
[2024-11-07 19:00] VITALS: BP 115/70; TEMP 97.8; O2SAT 95
[2024-11-07] MEDS ORDERED: levoFLOXacin 250 MG TABLET PO SCH (21:00)
[2024-11-08 06:00] VITALS: BP 135/74; TEMP 97.9; O2SAT 95
[2024-11-08 10:32] VITALS: BP 116/69
[2024-11-08] MEDS: levoFLOXacin 500 MG TABLET PO SCH (10:33)
== END 2024-11-08 12:40 | DRG 871 ==
LOC: ER 10:21 → MEDSURG3 16:52
PROVIDERS: ADMIT Nurse Practitioner Acute Care; ATTEND Internal Medicine
PROC: 05HC33Z Insertion of Infusion Device into Left Basilic Vein, Percutaneous Approach (ICD-10-PCS; principal; 2024-11-07)
DX: A41.59 Other Gram-negative sepsis (principal); N17.0 Acute kidney failure with tubular necrosis; N39.0 Urinary tract infection, site not specified; E44.0 Moderate protein-calorie malnutrition; E27.40 Unspecified adrenocortical insufficiency; I67.82 Cerebral ischemia; G93.40 Encephalopathy, unspecified; F03.93 Unspecified dementia, unspecified severity, with mood disturbance; Z66 Do not resuscitate; B96.4 Proteus (mirabilis) (morganii) as the cause of diseases classified elsewhere; B96.89 Other specified bacterial agents as the cause of diseases classified elsewhere; R31.0 Gross hematuria; I12.9 Hypertensive chronic kidney disease with stage 1 through stage 4 chronic kidney disease, or unspecified chronic kidney disease; N18.2 Chronic kidney disease, stage 2 (mild); E89.0 Postprocedural hypothyroidism; H91.93 Unspecified hearing loss, bilateral; N40.0 Benign prostatic hyperplasia without lower urinary tract symptoms; N20.0 Calculus of kidney; K59.00 Constipation, unspecified; E83.42 Hypomagnesemia; E78.5 Hyperlipidemia, unspecified; E83.39 Other disorders of phosphorus metabolism; E87.6 Hypokalemia; E88.09 Other disorders of plasma-protein metabolism, not elsewhere classified; I25.10 Atherosclerotic heart disease of native coronary artery without angina pectoris; I70.0 Atherosclerosis of aorta; I95.1 Orthostatic hypotension; G62.9 Polyneuropathy, unspecified; I45.9 Conduction disorder, unspecified; E53.8 Deficiency of other specified B group vitamins; J44.9 Chronic obstructive pulmonary disease, unspecified; J47.9 Bronchiectasis, uncomplicated; M51.369 Other intervertebral disc degeneration, lumbar region without mention of lumbar back pain or lower extremity pain; M41.86 Other forms of scoliosis, lumbar region; N28.1 Cyst of kidney, acquired; Z90.79 Acquired absence of other genital organ(s); Z96.653 Presence of artificial knee joint, bilateral; Z85.850 Personal history of malignant neoplasm of thyroid; Z91.81 History of falling; Z96.21 Cochlear implant status; Z88.0 Allergy status to penicillin; Z87.440 Personal history of urinary (tract) infections; Z79.01 Long term (current) use of anticoagulants; Z68.25 Body mass index [BMI] 25.0-25.9, adult; Z87.81 Personal history of (healed) traumatic fracture; F32.A Depression, unspecified; Z96.641 Presence of right artificial hip joint
CPT/HCPCS: 36415; 71045; 82378; 83550; 83690; 83735; 83921; 84100; 84153; 84443; 84484; 85025; 87077; 87086; A4606; A4663; A6209; A6213; G0378; J1956; J2185; J2270; J2765; J2865; J3420; J3490; J7040; J7060

== ENCOUNTER 2025-01-11 13:54 | Inpatient (IN) | payer BC ==
[~2025-01-11] VITALS: Ht 172.7 cm; Wt 75.0 kg
[~2025-01-11 13:54] MED LIST changes: +APIX5TAB PO; +CHOL10005 PO; +METO1TAB25 PO; -METO25TA6 PO; +POLY119P2 PO; -POLY17PO4 PO; -ROSU20TA2 PO; -VITAMIN D3 PO
[2025-01-11 14:28] LABS: PLATELET COUNT (AUTO) 209 K/uL (152-348); RED BLOOD CELL COUNT(AUTO) 4.51 MIL/uL (4.06-5.63); RED CELL DISTRIBUTION WIDTH 15.7 % (12.1-16.2); WHITE BLOOD COUNT (AUTO) 6.1 K/uL (3.6-10.2)
[2025-01-11] MEDS: IV NORMAL SALINE 1000 ML BAG IV ONE (14:28)
[2025-01-11 14:33] LABS: CREATININE 1.4 mg/dL (0.6-1.3); SODIUM SERUM 138 mmol/L (136-145); UREA NITROGEN, BLOOD 24 mg/dL (7-18)
[2025-01-11 14:38] LABS: ASPARTATE AMINOTRANSFERASE 13 U/L (15-37); TOTAL PROTEIN, SERUM 6.7 g/dL (6.4-8.2)
[2025-01-11] MEDS ORDERED: LIDOCAINE 2% (GLYDO= UROJET) 10 ML JELLY MM ONE (14:48)
[2025-01-11] MEDS: LIDOCAINE 2% (GLYDO= UROJET) 10 ML JELLY MM ONE (14:55)
[2025-01-11] MEDS ORDERED: POTASSIUM CHLORIDE 20 MEQ TAB.PRT.SR ONE (15:10)
[2025-01-11] MEDS: POTASSIUM CHLORIDE 20 MEQ TAB.PRT.SR PO ONE (15:13)
[2025-01-11 15:23] LABS: *BILIRUBIN,URIN 1+ (NEGATIVE); *BLOOD, URINE 3+ (NEGATIVE); *CLARITY,URINE CLOUDY (CLEAR); *COLOR,URINE AMBER (YELLOW); *KETONES,URINE NEGATIVE (NEGATIVE); *PROTEIN,URINE 3+ (NEGATIVE); *UROBILINOGEN,URINE 1.0 E.U./dl (NORMAL); LEUKOCYTE ESTERASE ,URINE 3+ (NEGATIVE); NITRITE, URINE NEGATIVE (NEGATIVE); UGLUCOSE NEGATIVE (NEGATIVE)
[2025-01-11 15:44] LABS: SQUAMOUS EPITHELIAL CELL,UR FEW /HPF (NONE SEEN)
[2025-01-11] MEDS ORDERED: ACETAMINOPHEN 325 MG TABLET PO PRN (18:15)
[2025-01-11] MEDS ORDERED: REMEDY ESSENTIAL ZINC PASTE 113 GM TP PRN (18:15)
[2025-01-11] MEDS ORDERED: ONDANSETRON 4 MG/2 ML VIAL IV PRN (18:15)
[2025-01-11] MEDS: IV 1/2NS 1000 ML 1,000 ML IV PRN (22:22)
[2025-01-11] MEDS: HEPARIN SODIUM,PORCINE 5,000 UNITS/ML VIAL SQ SCH (22:23)
[2025-01-12 05:11] VITALS: BP 98/65; TEMP 97.6; O2SAT 97
[2025-01-12] MEDS: PANTOPRAZOLE SODIUM 40 MG TABLET.DR PO SCH (06:15)
[2025-01-12 06:54] LABS: PLATELET COUNT (AUTO) 182 K/uL (152-348); RED BLOOD CELL COUNT(AUTO) 4.00 MIL/uL (4.06-5.63); RED CELL DISTRIBUTION WIDTH 15.2 % (12.1-16.2); WHITE BLOOD COUNT (AUTO) 7.0 K/uL (3.6-10.2)
[2025-01-12 07:08] LABS: CREATININE 1.2 mg/dL (0.6-1.3); SODIUM SERUM 137 mmol/L (136-145); UREA NITROGEN, BLOOD 21 mg/dL (7-18)
[2025-01-12] MEDS ORDERED: MULT-1045 PO (10:05)
[2025-01-12] MEDS ORDERED: LEVO175T7 PO (10:05)
[2025-01-12] MEDS ORDERED: LORA-972 PO (10:05)
[2025-01-12] MEDS ORDERED: METO-357 PO (10:05)
[2025-01-12] MEDS ORDERED: CHOL-35 PO (10:05)
[2025-01-12] MEDS ORDERED: ASCO500T85 PO (10:05)
[2025-01-12] MEDS: POTASSIUM CHLORIDE 20 MEQ TAB.PRT.SR PO ONE (11:54)
[2025-01-12 11:55] VITALS: BP 102/58; TEMP 97.4; O2SAT 95
[2025-01-12] MEDS ORDERED: POLYETHYLENE GLYCOL 3350 238 GM POWDER PO PRN (14:45)
[2025-01-12] MEDS ORDERED: LORATADINE 10 MG TABLET PO PRN (14:45)
[2025-01-12 15:59] VITALS: BP 97/59; TEMP 97.8; O2SAT 95
[2025-01-12] MEDS ORDERED: APIXABAN 5 MG TABLET PO SCH (17:00)
[2025-01-12] MEDS: NEUTRA PHOS PACKET PO ONE (17:13)
[2025-01-12] MEDS: buPROPion SR 150 MG TABLET.SA PO SCH (17:13)
[2025-01-12 19:00] VITALS: BP 149/53; TEMP 97.8; O2SAT 97
[2025-01-12] MEDS: APIXABAN 2.5 MG TABLET PO SCH (22:47)
[2025-01-13 06:00] VITALS: BP 102/62; TEMP 98; O2SAT 95
[2025-01-13] MEDS: LEVOTHYROXINE SODIUM 175 MCG TABLET PO SCH (06:33)
[2025-01-13 06:59] LABS: PLATELET COUNT (AUTO) 187 K/uL (152-348); RED BLOOD CELL COUNT(AUTO) 3.87 MIL/uL (4.06-5.63); RED CELL DISTRIBUTION WIDTH 15.4 % (12.1-16.2); WHITE BLOOD COUNT (AUTO) 6.1 K/uL (3.6-10.2)
[2025-01-13 07:13] LABS: CREATININE 1.3 mg/dL (0.6-1.3); SODIUM SERUM 141 mmol/L (136-145); UREA NITROGEN, BLOOD 17 mg/dL (7-18)
[2025-01-13 07:50] VITALS: BP 107/60; TEMP 97.6; O2SAT 98
[2025-01-13] MEDS: METOPROLOL SUCCINATE XL 50 MG TAB.SR.24H PO SCH (08:23)
[2025-01-13] MEDS: FINASTERIDE 5 MG TABLET PO SCH (08:23)
[2025-01-13] MEDS: ASCORBIC ACID 500 MG TABLET PO SCH (08:23)
[2025-01-13] MEDS: CHOLECALCIFEROL 1,000 UNIT TABLET PO SCH (08:23)
[2025-01-13] MEDS: MULTIVITAMINS,THERAPEUTIC TABLET PO SCH (08:23)
[2025-01-13] MEDS: GABAPENTIN 100 MG CAPSULE PO SCH (08:23)
[2025-01-13] MEDS: SENNOSIDES 1 TABLET PO SCH (08:24)
[2025-01-13] MEDS ORDERED: TAMSULOSIN HCL 0.4 MG CAP.SR.24H PO SCH (09:00)
[2025-01-13] MEDS: NEUTRA PHOS PACKET PO ONE (16:12)
[2025-01-13 16:19] VITALS: BP 110/63; TEMP 97.4; O2SAT 97
[2025-01-13 19:00] VITALS: BP 106/65; TEMP 98; O2SAT 95
[2025-01-13] MEDS: TAMSULOSIN HCL 0.4 MG CAP.SR.24H PO SCH (20:30)
[2025-01-14 06:57] VITALS: BP 103/57; TEMP 97.8; O2SAT 95
[2025-01-14 07:12] LABS: PLATELET COUNT (AUTO) 189 K/uL (152-348); RED BLOOD CELL COUNT(AUTO) 3.74 MIL/uL (4.06-5.63); RED CELL DISTRIBUTION WIDTH 15.3 % (12.1-16.2); WHITE BLOOD COUNT (AUTO) 6.5 K/uL (3.6-10.2)
[2025-01-14 07:35] LABS: CREATININE 1.1 mg/dL (0.6-1.3); SODIUM SERUM 141 mmol/L (136-145); UREA NITROGEN, BLOOD 15 mg/dL (7-18)
[2025-01-14 11:57] VITALS: BP 94/58; TEMP 97.7; O2SAT 100
[2025-01-14] MEDS: MAGNESIUM OXIDE 400 MG TABLET PO ONE (12:06)
[2025-01-14 16:32] VITALS: BP 101/57; TEMP 97.8; O2SAT 95
[2025-01-14] MEDS: MIRALAX 17 GM POWD.PACK PO PRN (16:34)
[2025-01-14] MEDS: MAGNESIUM HYDROXIDE 30 ML LIQUID UDC PO PRN (16:34)
[2025-01-14 19:58] VITALS: BP 92/55; TEMP 97.9; O2SAT 95
[2025-01-15 05:59] VITALS: BP 104/59; TEMP 97.7; O2SAT 98
[2025-01-15 06:58] LABS: PLATELET COUNT (AUTO) 194 K/uL (152-348); RED BLOOD CELL COUNT(AUTO) 3.80 MIL/uL (4.06-5.63); RED CELL DISTRIBUTION WIDTH 15.3 % (12.1-16.2); WHITE BLOOD COUNT (AUTO) 7.6 K/uL (3.6-10.2)
[2025-01-15 07:10] LABS: CREATININE 1.2 mg/dL (0.6-1.3); SODIUM SERUM 139 mmol/L (136-145); UREA NITROGEN, BLOOD 16 mg/dL (7-18)
[2025-01-15] MEDS: NEUTRA PHOS PACKET PO ONE (11:12)
[2025-01-15] MEDS: NITROFURANTOIN/NITROFURAN MAC 100 MG CAPSULE PO SCH (11:20)
[2025-01-15 11:51] VITALS: BP 117/43; TEMP 97.5; O2SAT 94
[2025-01-15] MEDS ORDERED: NITR100C11 PO (11:52)
== END 2025-01-15 15:56 | disposition home health service (06) | DRG 193 ==
LOC: ER 13:54 → MEDSURG3 20:28
PROVIDERS: ADMIT Student in an Organized Health Care Education/Training Program; ATTEND Student in an Organized Health Care Education/Training Program
DX: J15.9 Unspecified bacterial pneumonia (principal); N17.0 Acute kidney failure with tubular necrosis; N39.0 Urinary tract infection, site not specified; J44.0 Chronic obstructive pulmonary disease with (acute) lower respiratory infection; F03.93 Unspecified dementia, unspecified severity, with mood disturbance; E44.0 Moderate protein-calorie malnutrition; I67.89 Other cerebrovascular disease; E27.40 Unspecified adrenocortical insufficiency; Z85.850 Personal history of malignant neoplasm of thyroid; B95.2 Enterococcus as the cause of diseases classified elsewhere; E89.0 Postprocedural hypothyroidism; N28.1 Cyst of kidney, acquired; N20.0 Calculus of kidney; I70.0 Atherosclerosis of aorta; Z91.81 History of falling; Z96.651 Presence of right artificial knee joint; H91.93 Unspecified hearing loss, bilateral; Z88.0 Allergy status to penicillin; Z90.79 Acquired absence of other genital organ(s); N40.0 Benign prostatic hyperplasia without lower urinary tract symptoms; Z87.09 Personal history of other diseases of the respiratory system; F32.A Depression, unspecified; G62.9 Polyneuropathy, unspecified; Z68.25 Body mass index [BMI] 25.0-25.9, adult; Z87.81 Personal history of (healed) traumatic fracture; E88.09 Other disorders of plasma-protein metabolism, not elsewhere classified; E78.5 Hyperlipidemia, unspecified; I45.9 Conduction disorder, unspecified; I12.9 Hypertensive chronic kidney disease with stage 1 through stage 4 chronic kidney disease, or unspecified chronic kidney disease; N18.2 Chronic kidney disease, stage 2 (mild); E87.6 Hypokalemia; E83.42 Hypomagnesemia; I95.1 Orthostatic hypotension; D64.9 Anemia, unspecified; M15.9 Polyosteoarthritis, unspecified; Z87.442 Personal history of urinary calculi; Z79.899 Other long term (current) drug therapy; Z79.01 Long term (current) use of anticoagulants; E53.8 Deficiency of other specified B group vitamins; E83.39 Other disorders of phosphorus metabolism; Z66 Do not resuscitate; Z79.890 Hormone replacement therapy; G47.30 Sleep apnea, unspecified; I25.10 Atherosclerotic heart disease of native coronary artery without angina pectoris
CPT/HCPCS: 36415; 51798; 71045; 83605; 83735; 84100; 84443; 85025; 87040; 87077; 87086; A6213; C1758; G0378; J1644; J1956; J7040

== ENCOUNTER 2025-01-31 15:57 | Inpatient (IN) | payer BC ==
[~2025-01-31] VITALS: Ht 172.7 cm; Wt 76.2 kg
[2025-01-31] VITALS (19 sets, daily range): BP systolic 79–133; BP diastolic 49–84; TEMP 97.9; O2SAT 92–97
[~2025-01-31 15:57] MED LIST changes: +ASCO500T85 PO; +CHOL-35 PO; -CHOL10005 PO; -CITA40TA22 PO; -CRANBERRY PO; -LEVO150T8 PO; +LEVO175T7 PO; +LORA-972 PO; +METO-357 PO; -METO1TAB25 PO; +MULT-1045 PO; +NITR100C11 PO; -VIT1TABL46 PO
[2025-01-31] MEDS: IV NORMAL SALINE 1000 ML BAG IV ONE ×2 (16:15→19:06)
[2025-01-31 16:25] LABS: PLATELET COUNT (AUTO) 259 K/uL (152-348); RED BLOOD CELL COUNT(AUTO) 4.48 MIL/uL (4.06-5.63); RED CELL DISTRIBUTION WIDTH 15.8 % (12.1-16.2); WHITE BLOOD COUNT (AUTO) 8.2 K/uL (3.6-10.2)
[2025-01-31] MEDS ORDERED: DAPTOMYCIN 500 MG in IV NORMAL SALINE 50 ML IV SCH (16:30)
[2025-01-31] MEDS ORDERED: VANCOMYCIN IV 200 ML ONE (16:36)
[2025-01-31 16:37] LABS: CREATININE 1.4 mg/dL (0.6-1.3); SODIUM SERUM 140 mmol/L (136-145); UREA NITROGEN, BLOOD 35 mg/dL (7-18)
[2025-01-31 16:43] LABS: ASPARTATE AMINOTRANSFERASE 19 U/L (15-37); TOTAL PROTEIN, SERUM 6.9 g/dL (6.4-8.2)
[2025-01-31] MEDS: VANCOMYCIN IV 1,000 MG in IV DEXTROSE 5% 250 ML IV ONE (16:50)
[2025-01-31 17:12] LABS: LACTIC ACID 3.1 mmol/L (0.4-2.0)
[2025-01-31] MEDS ORDERED: NITROFURANTOIN/NITROFURAN MAC 100 MG CAPSULE PO ONE (18:18)
[2025-01-31] MEDS: NITROFURANTOIN/NITROFURAN MAC 100 MG CAPSULE PO ONE (18:25)
[2025-01-31] MEDS ORDERED: HYDR25TA4 PO (18:44)
[2025-01-31] MEDS ORDERED: REMEDY ESSENTIAL ZINC PASTE 113 GM TP PRN (19:15)
[2025-01-31] MEDS ORDERED: POLYETHYLENE GLYCOL 3350 238 GM POWDER PO PRN (19:15)
[2025-01-31] MEDS ORDERED: ONDANSETRON 4 MG/2 ML VIAL IV PRN (19:15)
[2025-01-31] MEDS ORDERED: ACETAMINOPHEN ES 500 MG TABLET- SA PATIENTS-PAIN ONLY PO PRN (19:15)
[2025-01-31] MEDS: NOREPINEPHRINE 8MG/NS 250ML 250 ML IV PRN (19:45)
[2025-02-01] VITALS (97 sets, daily range): BP systolic 72–134; BP diastolic 49–71; TEMP 97.9–98.2; O2SAT 90–99
[2025-02-01] MEDS: ACETAMINOPHEN 325 MG TABLET PO PRN (00:07)
[2025-02-01] MEDS: MORPHINE SULFATE 2 MG/1 ML DISP.SYRIN IV PRN (01:27)
[2025-02-01 05:17] LABS: PLATELET COUNT (AUTO) 212 K/uL (152-348); RED BLOOD CELL COUNT(AUTO) 3.71 MIL/uL (4.06-5.63); RED CELL DISTRIBUTION WIDTH 14.9 % (12.1-16.2); WHITE BLOOD COUNT (AUTO) 9.4 K/uL (3.6-10.2)
[2025-02-01 05:35] LABS: CREATININE 1.1 mg/dL (0.6-1.3); SODIUM SERUM 145 mmol/L (136-145); UREA NITROGEN, BLOOD 23 mg/dL (7-18)
[2025-02-01] MEDS ORDERED: POTASSIUM PHOSPHATE MM 7.5 MMOL in IV NORMAL SALINE 97.5 ML IV ONE (06:15)
[2025-02-01] MEDS ORDERED: POTASSIUM CHLORIDE 50 ML IV SCH (06:15)
[2025-02-01] MEDS: MAGNESIUM SULFATE/D5W 100 ML IV SCH (06:26)
[2025-02-01] MEDS: IV NS 1000 ML 1,000 ML IV PRN (07:22)
[2025-02-01] MEDS: POTASSIUM CHLORIDE 50 ML IV SCH (08:18)
[2025-02-01] MEDS: POTASSIUM PHOSPHATE MM 15 MMOL in IV NORMAL SALINE 250 ML IV ONE (08:20)
[2025-02-01] MEDS: LEVOTHYROXINE SODIUM 175 MCG TABLET PO SCH (08:26)
[2025-02-01] MEDS: APIXABAN 5 MG TABLET PO SCH (09:40)
[2025-02-01] MEDS: TAMSULOSIN HCL 0.4 MG CAP.SR.24H PO SCH (09:42)
[2025-02-01] MEDS: FINASTERIDE 5 MG TABLET PO SCH (09:42)
[2025-02-01] MEDS: MULTIVITAMINS,THERAPEUTIC TABLET PO SCH (09:43)
[2025-02-01] MEDS: CHOLECALCIFEROL 1,000 UNIT TABLET PO SCH (09:43)
[2025-02-01] MEDS: SENNOSIDES 1 TABLET PO SCH (09:43)
[2025-02-01] MEDS: ASCORBIC ACID 500 MG TABLET PO SCH (09:43)
[2025-02-01] MEDS: buPROPion SR 150 MG TABLET.SA PO SCH (09:44)
[2025-02-01] MEDS: MAGNESIUM OXIDE 400 MG TABLET PO ONE (11:54)
[2025-02-01] MEDS: FLUTICASONE PROP NASAL SPRAY 16 GM BOTTLE NS SCH (11:54)
[2025-02-01] MEDS: VANCOMYCIN IV 1,250 MG in IV DEXTROSE 5% 250 ML IV SCH (11:55)
[2025-02-01] MEDS: MAGNESIUM HYDROXIDE 30 ML LIQUID UDC PO PRN (15:58)
[2025-02-01] MEDS ORDERED: MIRALAX 17 GM POWD.PACK PO PRN (16:00)
[2025-02-01] MEDS: ENSURE ENLIVE (VAN) 240 ML LIQUID PO SCH (17:59)
[2025-02-02] VITALS (91 sets, daily range): BP systolic 73–139; BP diastolic 45–80; TEMP 98–99; O2SAT 93–99
[2025-02-02 05:18] LABS: PLATELET COUNT (AUTO) 180 K/uL (152-348); RED BLOOD CELL COUNT(AUTO) 3.46 MIL/uL (4.06-5.63); RED CELL DISTRIBUTION WIDTH 15.4 % (12.1-16.2); WHITE BLOOD COUNT (AUTO) 10.1 K/uL (3.6-10.2)
[2025-02-02 05:29] LABS: CREATININE 1.0 mg/dL (0.6-1.3); SODIUM SERUM 143 mmol/L (136-145); UREA NITROGEN, BLOOD 11 mg/dL (7-18)
[2025-02-02] MEDS: POTASSIUM PHOSPHATE MM 15 MMOL in IV NORMAL SALINE 250 ML IV ONE (07:45)
[2025-02-02 08:57] LABS: *BILIRUBIN,URIN NEGATIVE (NEGATIVE); *BLOOD, URINE 3+ (NEGATIVE); *CLARITY,URINE CLEAR (CLEAR); *COLOR,URINE YELLOW (YELLOW); *KETONES,URINE NEGATIVE (NEGATIVE); *PROTEIN,URINE NEGATIVE (NEGATIVE); *UROBILINOGEN,URINE 0.2 E.U./dl (NORMAL); LEUKOCYTE ESTERASE ,URINE TRACE (NEGATIVE); NITRITE, URINE NEGATIVE (NEGATIVE); UGLUCOSE NEGATIVE (NEGATIVE)
[2025-02-03] VITALS (96 sets, daily range): BP systolic 71–144; BP diastolic 47–100; TEMP 98.6–99.3; O2SAT 89–100
[2025-02-03 04:49] LABS: PLATELET COUNT (AUTO) 169 K/uL (152-348); RED BLOOD CELL COUNT(AUTO) 3.22 MIL/uL (4.06-5.63); RED CELL DISTRIBUTION WIDTH 15.4 % (12.1-16.2); WHITE BLOOD COUNT (AUTO) 9.6 K/uL (3.6-10.2)
[2025-02-03 08:23] LABS: CREATININE 0.9 mg/dL (0.6-1.3); SODIUM SERUM 141 mmol/L (136-145); UREA NITROGEN, BLOOD 10 mg/dL (7-18)
[2025-02-03] MEDS: MIDODRINE HCL 5 MG TABLET PO SCH (10:55)
[2025-02-03] MEDS: POTASSIUM CHLORIDE 20 MEQ TAB.PRT.SR PO ONE (13:56)
[2025-02-04] VITALS (71 sets, daily range): BP systolic 92–141; BP diastolic 52–87; TEMP 97.7–98.7; O2SAT 83–99
[2025-02-04 05:12] LABS: PLATELET COUNT (AUTO) 168 K/uL (152-348); RED BLOOD CELL COUNT(AUTO) 3.13 MIL/uL (4.06-5.63); RED CELL DISTRIBUTION WIDTH 15.7 % (12.1-16.2); WHITE BLOOD COUNT (AUTO) 6.5 K/uL (3.6-10.2)
[2025-02-04 05:21] LABS: CREATININE 0.8 mg/dL (0.6-1.3); SODIUM SERUM 142 mmol/L (136-145); UREA NITROGEN, BLOOD 10 mg/dL (7-18)
[2025-02-04] MEDS: MIDODRINE HCL 5 MG TABLET PO ONE (11:48)
[2025-02-04] MEDS: MIDODRINE HCL 5 MG TABLET PO SCH (17:24)
[2025-02-05] VITALS (22 sets, daily range): BP systolic 91–134; BP diastolic 58–80; TEMP 97.7–98.9; O2SAT 91–98
[2025-02-05 05:04] LABS: PLATELET COUNT (AUTO) 184 K/uL (152-348); RED BLOOD CELL COUNT(AUTO) 3.13 MIL/uL (4.06-5.63); RED CELL DISTRIBUTION WIDTH 15.4 % (12.1-16.2); WHITE BLOOD COUNT (AUTO) 8.1 K/uL (3.6-10.2)
[2025-02-05 05:10] LABS: CREATININE 0.9 mg/dL (0.6-1.3); SODIUM SERUM 142 mmol/L (136-145); UREA NITROGEN, BLOOD 12 mg/dL (7-18)
[2025-02-06 00:43] VITALS: BP 113/66; TEMP 97.9; O2SAT 95
[2025-02-06 05:01] VITALS: BP 105/64; TEMP 98.2; O2SAT 98
[2025-02-06 06:39] LABS: PLATELET COUNT (AUTO) 194 K/uL (152-348); RED BLOOD CELL COUNT(AUTO) 3.22 MIL/uL (4.06-5.63); RED CELL DISTRIBUTION WIDTH 15.8 % (12.1-16.2); WHITE BLOOD COUNT (AUTO) 6.5 K/uL (3.6-10.2)
[2025-02-06 07:38] LABS: CREATININE 0.9 mg/dL (0.6-1.3); SODIUM SERUM 140 mmol/L (136-145); UREA NITROGEN, BLOOD 14 mg/dL (7-18)
[2025-02-06 08:00] VITALS: BP 96/56; TEMP 98.6; O2SAT 99
[2025-02-06] MEDS ORDERED: LEVO250T59 PO (10:53)
[2025-02-06 12:00] VITALS: BP 105/62; TEMP 98.8; O2SAT 94
[2025-02-06 16:00] VITALS: BP 99/57; TEMP 97.9; O2SAT 95
[2025-02-06] MEDS ORDERED: IPRATROPIUM BROMIDE 0.5 MG/2.5 ML NEBU NEB PRN (16:30)
[2025-02-06] MEDS ORDERED: ALBUTEROL SULFATE 1.25 MG/3 ML NEBU NEB PRN (16:30)
[2025-02-06 19:00] VITALS: BP 102/63; TEMP 98.4; O2SAT 95
[2025-02-07] VITALS: BP 100/66; TEMP 97.9; O2SAT 95
[2025-02-07 04:00] VITALS: BP 104/64; TEMP 98.3; O2SAT 95
[2025-02-07 07:02] LABS: PLATELET COUNT (AUTO) 207 K/uL (152-348); RED BLOOD CELL COUNT(AUTO) 3.32 MIL/uL (4.06-5.63); RED CELL DISTRIBUTION WIDTH 16.5 % (12.1-16.2); WHITE BLOOD COUNT (AUTO) 7.0 K/uL (3.6-10.2)
[2025-02-07 07:26] LABS: CREATININE 1.1 mg/dL (0.6-1.3); SODIUM SERUM 143 mmol/L (136-145); UREA NITROGEN, BLOOD 17 mg/dL (7-18)
[2025-02-07 07:55] VITALS: BP 118/60; TEMP 97.9; O2SAT 93
[2025-02-07 11:51] VITALS: BP 124/72; TEMP 97.9; O2SAT 96
[2025-02-07] MEDS ORDERED: APIX2.5T PO (14:54)
[2025-02-07] MEDS ORDERED: MIDO10TA PO (15:02)
[2025-02-07 15:57] VITALS: BP 115/74; TEMP 98.2; O2SAT 93
== END 2025-02-07 16:40 | disposition home health service (06) | DRG 871 ==
LOC: ER 16:51 → CCU 18:32 → TELE3 02-05 18:38 → MEDSURG3 02-07 08:36
PROVIDERS: ADMIT Nurse Practitioner Acute Care; ATTEND Nurse Practitioner Acute Care
PROC: 05HC33Z Insertion of Infusion Device into Left Basilic Vein, Percutaneous Approach (ICD-10-PCS; principal; 2025-02-01)
DX: A41.9 Sepsis, unspecified organism (principal); J15.9 Unspecified bacterial pneumonia; N17.0 Acute kidney failure with tubular necrosis; R65.21 Severe sepsis with septic shock; N39.0 Urinary tract infection, site not specified; E87.20 Acidosis, unspecified; E44.0 Moderate protein-calorie malnutrition; D68.32 Hemorrhagic disorder due to extrinsic circulating anticoagulants; J98.11 Atelectasis; Z66 Do not resuscitate; E89.0 Postprocedural hypothyroidism; H91.93 Unspecified hearing loss, bilateral; E78.5 Hyperlipidemia, unspecified; N40.0 Benign prostatic hyperplasia without lower urinary tract symptoms; Z96.653 Presence of artificial knee joint, bilateral; Z98.42 Cataract extraction status, left eye; Z98.41 Cataract extraction status, right eye; Z79.899 Other long term (current) drug therapy; Z79.890 Hormone replacement therapy; Z88.1 Allergy status to other antibiotic agents; Z88.0 Allergy status to penicillin; I25.10 Atherosclerotic heart disease of native coronary artery without angina pectoris; I48.0 Paroxysmal atrial fibrillation; Z85.850 Personal history of malignant neoplasm of thyroid; Z87.440 Personal history of urinary (tract) infections; Z90.79 Acquired absence of other genital organ(s); Z91.81 History of falling; Z96.641 Presence of right artificial hip joint; R31.0 Gross hematuria; T45.515A Adverse effect of anticoagulants, initial encounter; Y92.199 Unspecified place in other specified residential institution as the place of occurrence of the external cause; E88.09 Other disorders of plasma-protein metabolism, not elsewhere classified; E87.6 Hypokalemia; J40 Bronchitis, not specified as acute or chronic; N18.9 Chronic kidney disease, unspecified; I12.9 Hypertensive chronic kidney disease with stage 1 through stage 4 chronic kidney disease, or unspecified chronic kidney disease; Z79.01 Long term (current) use of anticoagulants; G62.9 Polyneuropathy, unspecified; D64.9 Anemia, unspecified; E86.1 Hypovolemia
CPT/HCPCS: 36415; 71045; 82785; 83605; 83735; 84100; 84484; 85018; 85025; 85730; 87040; 87086; 94760; A4606; A4663; A6213; G0378; J0878; J1956; J2270; J3373; J3475; J3480; J3490; J3535; J7040; J7050

== ENCOUNTER 2025-03-11 13:53 | Emergency (ER) | payer BC ==
[~2025-03-11] VITALS: Ht 172.7 cm; Wt 76.2 kg
[~2025-03-11 13:53] MED LIST changes: +APIX2.5T PO; -APIX5TAB PO; -ASCO500C18 PO; +LEVO250T59 PO; +MIDO10TA PO
[2025-03-11] MEDS: IV NORMAL SALINE 1000 ML BAG IV ONE (14:34)
[2025-03-11 14:35] LABS: PLATELET COUNT (AUTO) 222 K/uL (152-348); RED BLOOD CELL COUNT(AUTO) 4.27 MIL/uL (4.06-5.63); RED CELL DISTRIBUTION WIDTH 15.1 % (12.1-16.2); WHITE BLOOD COUNT (AUTO) 8.2 K/uL (3.6-10.2)
[2025-03-11 14:47] LABS: CREATININE 1.5 mg/dL (0.6-1.3); SODIUM SERUM 139 mmol/L (136-145); UREA NITROGEN, BLOOD 30 mg/dL (7-18)
[2025-03-11 14:53] LABS: ASPARTATE AMINOTRANSFERASE 9 U/L (15-37); TOTAL PROTEIN, SERUM 6.7 g/dL (6.4-8.2)
[2025-03-11] MEDS ORDERED: POTASSIUM BICARBONATE/CIT AC 25 MEQ TABLET.EFF ONE (15:22)
[2025-03-11] MEDS ORDERED: LIDOCAINE 2% (GLYDO= UROJET) 10 ML JELLY MM ONE (15:22)
[2025-03-11] MEDS: LIDOCAINE 2% (GLYDO= UROJET) 10 ML JELLY MM ONE (15:30)
[2025-03-11] MEDS: POTASSIUM BICARBONATE/CIT AC 25 MEQ TABLET.EFF PO ONE (15:30)
[2025-03-11 16:43] LABS: *BILIRUBIN,URIN NEGATIVE (NEGATIVE); *BLOOD, URINE 3+ (NEGATIVE); *CLARITY,URINE CLOUDY (CLEAR); *COLOR,URINE AMBER (YELLOW); *KETONES,URINE NEGATIVE (NEGATIVE); *UROBILINOGEN,URINE 1.0 E.U./dl (NORMAL); LEUKOCYTE ESTERASE ,URINE 3+ (NEGATIVE); NITRITE, URINE NEGATIVE (NEGATIVE); UGLUCOSE NEGATIVE (NEGATIVE)
[2025-03-11 16:49] LABS: *PROTEIN,URINE 3+ (NEGATIVE)
[2025-03-11 16:54] LABS: SQUAMOUS EPITHELIAL CELL,UR FEW /HPF (NONE SEEN)
[2025-03-11] MEDS: GENTAMICIN SULFATE 20 MG/2 ML VIAL IV ONE (17:40)
[2025-03-11] MEDS ORDERED: GENTAMICIN SULFATE 20 MG/2 ML VIAL IV ONE (17:41)
[2025-03-11] MEDS: GENTAMICIN SULFATE INJ 100 MG in IV DEXTROSE 5% 100 ML IV ONE (18:19)
[2025-03-11] MEDS ORDERED: SULF1TAB48 PO (18:23)
[2025-03-11 20:19] VITALS: BP 106/63
[2025-03-11 20:21] VITALS: BP 106/63; O2SAT 96
== END 2025-03-11 20:40 ==
LOC: ER 13:59
DX: T83.091A Other mechanical complication of indwelling urethral catheter, initial encounter (principal); N39.0 Urinary tract infection, site not specified; I51.9 Heart disease, unspecified; H91.90 Unspecified hearing loss, unspecified ear; E87.6 Hypokalemia; E78.5 Hyperlipidemia, unspecified; E03.9 Hypothyroidism, unspecified; Z79.01 Long term (current) use of anticoagulants; Z79.890 Hormone replacement therapy; Z79.899 Other long term (current) drug therapy; Z85.850 Personal history of malignant neoplasm of thyroid; Z88.0 Allergy status to penicillin; Z88.7 Allergy status to serum and vaccine; Z90.89 Acquired absence of other organs; Z98.890 Other specified postprocedural states; Y73.8 Miscellaneous gastroenterology and urology devices associated with adverse incidents, not elsewhere classified
CPT/HCPCS: 36415; 51702; 71045; 83605; 83690; 83735; 84484; 85025; 87040; 87077; 87086; 93005; A4606; A4663; J1580; J7040

== ENCOUNTER 2025-06-08 14:18 | Emergency (ER) | payer BC ==
[~2025-06-08] VITALS: Ht 172.7 cm; Wt 76.2 kg
[~2025-06-08 14:18] MED LIST changes: +ASCO500T16 PO; -ASCO500T85 PO; -LEVO250T59 PO; +LEVO250T69 PO; -MIDO10TA PO; +MIDO10TA3 PO; +SULF1TAB48 PO; -TAMS-3 PO; +TAMS0.4C PO
[2025-06-08 14:26] VITALS: BP 116/65
[2025-06-08 18:13] LABS: *BILIRUBIN,URIN NEGATIVE (NEGATIVE); *BLOOD, URINE 2+ (NEGATIVE); *COLOR,URINE YELLOW (YELLOW); *KETONES,URINE NEGATIVE (NEGATIVE); *PROTEIN,URINE 3+ (NEGATIVE); *UROBILINOGEN,URINE 0.2 E.U./dl (NORMAL); LEUKOCYTE ESTERASE ,URINE 3+ (NEGATIVE); NITRITE, URINE POSITIVE (NEGATIVE); UGLUCOSE NEGATIVE (NEGATIVE)
[2025-06-08] MEDS: LIDOCAINE 2% (GLYDO= UROJET) 10 ML JELLY MM ONE (18:17)
[2025-06-08 18:34] LABS: *CLARITY,URINE TURBID (CLEAR)
[2025-06-08] MEDS ORDERED: SULFAMETH/TRIMETH 800/160 MG TABLET ONE (18:59)
[2025-06-08] MEDS: SULFAMETH/TRIMETH 800/160 MG TABLET PO ONE (19:04)
[2025-06-08 20:09] LABS: SQUAMOUS EPITHELIAL CELL,UR FEW /HPF (NONE SEEN)
[2025-06-08 20:10] LABS: TRIPLE PHOSPHATE CRYSTAL,UR FEW /HPF (NONE SEEN); URINE AMORPHOUS PHOSPHATES MANY /HPF
[2025-06-08 21:44] VITALS: BP 118/66; TEMP 98; O2SAT 98
== END 2025-06-08 21:44 | disposition home or self-care (01) ==
LOC: ER 14:18
DX: T83.091A Other mechanical complication of indwelling urethral catheter, initial encounter (principal); E78.5 Hyperlipidemia, unspecified; I51.9 Heart disease, unspecified; N30.90 Cystitis, unspecified without hematuria; Z79.01 Long term (current) use of anticoagulants; Z79.890 Hormone replacement therapy; Z79.899 Other long term (current) drug therapy; Z85.850 Personal history of malignant neoplasm of thyroid; Z88.0 Allergy status to penicillin; Z88.7 Allergy status to serum and vaccine; Z90.89 Acquired absence of other organs; Y73.8 Miscellaneous gastroenterology and urology devices associated with adverse incidents, not elsewhere classified
CPT/HCPCS: 51702; 87077; 87086; A4606